=== PATIENT | male | born 1960 | race Caucasian/White ===

== ENCOUNTER 2019-10-12 21:41 | Emergency (ER) | payer OTHER ==
--- NOTE | 2019-10-12 21:53 | ERPHSYRPT ---
- History of Present Illness Time Seen by Provider: 10/12/19 21:52 Historian: patient Exam Limitations: no limitations Physician History: This is a 59-year-old white male who states he began having some left-sided chest pain without radiation and with associated palpitations. His chest pain and palpitation resolved prior to arrival. Patient describes the pain as sharp and nonradiating. Patient states that he has not been working much until the last couple of days. 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 Patient thinks he overexerted himself. Patient has no prior history of any cardiac abnormalities. He does have a history of hypertension. Denies shortness of breath, he denies abdominal pain, he denies nausea vomiting diarrhea. Timing/Duration: today Quality: sharpness, stabbing Location: other (Left side anterior ribs) Chest Pain Radiation: no radiation Severity of Pain-Max: moderate Severity of Pain-Current: none Modifying Factors: Improves With: movement Associated Symptoms: denies symptoms Prior Chest Pain/Cardiac Workup: no prior chest pain Nitro Today/Relief: no nitro taken today Aspirin Treatment Today: no aspirin today Allergies/Adverse Reactions: codeine Allergy (Unknown, Verified 10/12/19 22:04) Home Medications: Celecoxib [Celebrex] 200 mg PO DAILY 10/12/19 [History] Ergocalciferol (Vitamin D2) [Vitamin D2] 50,000 unit PO WEEKLY 10/12/19 [History ] Lidocaine 1 patch .ROUTE DAILY 10/12/19 [History] Methocarbamol 500 mg PO TID 10/12/19 [History] Nabumetone 750 mg PO BID 10/12/19 [History] Omeprazole 20 mg PO DAILY 10/12/19 [History] Travel Risk - International Travel Have you traveled outside of the country in past 3 weeks: No Have you or anyone close to you been diagnosed with or: No Do your reside in a community with a known COVID-19 case?: Yes If Yes where:: [facility] - Coronavirus Screening Has patient experienced Coronavirus symptoms: No - Review of Systems Constitutional: No Symptoms Eyes: No Symptoms Ears, Nose, & Throat: No Symptoms Respiratory: No Symptoms Cardiac: Chest Pain, Palpitations Abdominal/Gastrointestinal: No Symptoms Genitourinary Symptoms: No Symptoms Musculoskeletal: No Symptoms Skin: No Symptoms Neurological: No Symptoms Psychological: No Symptoms Endocrine: No Symptoms Hematologic/Lymphatic: No Symptoms Immunological/Allergic: No Symptoms All Other Systems: Reviewed and Negative - Past Medical History Pertinent Past Medical History: Yes Neurological History: Seizures ENT History: No Pertinent History Cardiac History: Hypertension Respiratory History: COPD, Emphysema Endocrine Medical History: Other Musculoskeletal History: Osteoarthritis GI Medical History: No Pertinent History History: No Pertinent History Psycho-Social History: No Pertinent History Male Reproductive Disorders: No Pertinent History Other Medical History: PATIENT STATES [facility] TOLD HIM HE HAS ARTHRITIS IN HIS JOINTS, GERD, ALSO HAD 'SPLOTCHES' ON HIS KIDNEYS WHICH WAS MONITORED FOR 2 YEARS BUT NOT BEING MONITORED NOW. - Past Surgical History Neuro Surgical History: No Pertinent History Cardiac: No Pertinent History Respiratory: No Pertinent History Gastrointestinal: No Pertinent History Genitourinary: No Pertinent History Musculoskeletal: No Pertinent History Male Surgical History: No Pertinent History - Social History Smoking Status: Former smoker - Nursing Vital Signs Nursing Vital Signs: Initial Vital Signs Temperature 97.8 F 10/12/19 21:46 Pulse Rate 82 10/12/19 21:46 Respiratory Rate 15 10/12/19 21:46 Blood Pressure 137/100 10/12/19 21:46 O2 Sat by Pulse Oximetry 97 10/12/19 21:46 Pain Scale Pain Intensity 0 - Physical Exam General Appearance: no apparent distress, alert, anxiety Eye Exam: PERRL/EOMI, eyes nml inspection Ears, Nose, Throat Exam: normal ENT inspection, moist mucous membranes Neck Exam: normal inspection, non-tender, supple, full range of motion Respiratory Exam: normal breath sounds, lungs clear, airway intact, No chest tenderness, No respiratory distress Cardiovascular Exam: regular rate/rhythm, normal heart sounds, normal peripheral pulses Gastrointestinal/Abdomen Exam: soft, normal bowel sounds, No tenderness Rectal Exam: not done Back Exam: normal inspection, normal range of motion, No CVA tenderness, No vertebral tenderness Extremity Exam: normal inspection, normal range of motion, pelvis stable Neurologic Exam: alert, oriented x 3, cooperative, acid operator II-XII nml as tested Skin Exam: normal color, warm, dry Lymphatic Exam: No adenopathy SpO2 Interpretation: normal O2 Delivery: Room Air - Course Nursing assessment & vital signs reviewed: Yes EKG Interpreted by Me: RATE (81), Sinus Rhythm, NORMAL AXIS, NORMAL INTERVALS, NORMAL QRS, Other (comparison ekg dated 02/23/19. no acute ischemic changes) Ordered Tests: Active Orders 24 hr Category Date Time Status Crotch Piece Baster STAT Care 10/12/19 21:55 Active Clean Catch Urine Specimen STAT Care 10/12/19 21:57 Active EKG-ER Only STAT Care 10/12/19 21:55 Active IV Insertion STAT Care 10/12/19 21:55 Active Isolation, Initiate & Maintain Q4H Care 10/12/19 22:03 Active Pulse Oximetry (ED) STAT Care 10/12/19 21:55 Active CHEST 1 VIEW (PORTABLE) Stat Exams 10/12/19 21:58 Taken CBC W DIFF Stat Lab 10/12/19 22:04 Completed CMP Stat Lab 10/12/19 22:04 Completed NT PRO BNP Stat Lab 10/12/19 22:04 Completed PROTIME WITH INR Stat Lab 10/12/19 22:04 Completed TROPONIN Q3H Lab 10/12/19 22:04 Completed TROPONIN Q3H Lab 10/13/19 01:00 Ordered TROPONIN Q3H Lab 10/13/19 04:00 Ordered TROPONIN Q3H Lab 10/13/19 07:00 Ordered TROPONIN Q3H Lab 10/13/19 10:00 Ordered Urine Triage Profile Stat Lab 10/12/19 21:58 Uncollected Medication Summary Discontinued Medications Generic Name Dose Route Start Last Admin Trade Name Freq PRN Reason Stop Dose Admin Aspirin 324 mg 10/12/19 21:57 10/12/19 22:01 Baby Aspirin 81 Mg Chew PO 10/12/19 21:58 324 mg STAT ONE Administration Aspirin Confirm 10/12/19 22:00 Baby Aspirin 81 Mg Chew Administered 10/12/19 22:01 Dose 324 mg .ROUTE .STK-MED ONE Lab/Rad Data: Laboratory Result Diagrams 10/12/19 22:04 10/12/19 22:04 Laboratory Results 10/12/19 10/12/19 10/12/19 Range/Units 22:04 22:04 22:04 WBC (4.0-10.5) K/mm3 RBC (4.1-5.6) M/mm3 Hgb (12.5-18.0) gm/dl Hct (42-50) % MCV (78-100) fl MCH (26-32) pg MCHC (32-36) g/dl RDW (11.5-14.0) % Plt Count (150-450) K/mm3 MPV (7.5-11.0) fl Gran % (36.0-66.0) % Eos # (Auto) (0-0.5) Absolute Lymphs (auto) (1.0-4.6) Absolute Monos (auto) (0.0-1.3) Lymphocytes % (24.0-44.0) % Monocytes % (0.0-12.0) % Eosinophils % (0.00-5.0) % Basophils % (0.0-0.4) % Absolute Granulocytes (1.4-6.9) Basophils # (0-0.4) PT 12.1 (8.83-12.87) SECONDS INR 1.07 (0.8-3.0) Sodium 139 (137-145) mmol/L Potassium 3.5 (3.5-5.1) mmol/L Chloride 107 (98-107) mmol/L Carbon Dioxide 24 (22-30) mmol/L Anion Gap 11.8 (5-15) MEQ/L BUN 18 (9-20) mg/dL Creatinine 0.96 (0.66-1.25) mg/dL Estimated GFR > 60.0 ML/MIN Glucose 125 H (74-106) mg/dL Calcium 9.5 (8.4-10.2) mg/dL Total Bilirubin 0.80 (0.2-1.3) mg/dL AST 28 (17-59) U/L ALT 26 (0-50) U/L Alkaline Phosphatase 106 (38-126) U/L Troponin I < 0.012 (0.000-0.034) ng/mL NT-Pro-B Natriuret Pep 28.9 (0-900) pg/mL Serum Total Protein 7.2 (6.3-8.2) g/dL Albumin 4.0 (3.5-5.0) g/dL 10/12/19 Range/Units 22:04 WBC 8.6 (4.0-10.5) K/mm3 RBC 4.73 (4.1-5.6) M/mm3 Hgb 14.3 (12.5-18.0) gm/dl Hct 41.8 L (42-50) % MCV 88.4 (78-100) fl MCH 30.2 (26-32) pg MCHC 34.2 (32-36) g/dl RDW 12.5 (11.5-14.0) % Plt Count 281 (150-450) K/mm3 MPV 9.3 (7.5-11.0) fl Gran % 42.9 (36.0-66.0) % Eos # (Auto) 0.32 (0-0.5) Absolute Lymphs (auto) 3.56 (1.0-4.6) Absolute Monos (auto) 1.02 (0.0-1.3) Lymphocytes % 41.3 (24.0-44.0) % Monocytes % 11.8 (0.0-12.0) % Eosinophils % 3.7 (0.00-5.0) % Basophils % 0.3 (0.0-0.4) % Absolute Granulocytes 3.70 (1.4-6.9) Basophils # 0.03 (0-0.4) PT (8.83-12.87) SECONDS INR (0.8-3.0) Sodium (137-145) mmol/L Potassium (3.5-5.1) mmol/L Chloride (98-107) mmol/L Carbon Dioxide (22-30) mmol/L Anion Gap (5-15) MEQ/L BUN (9-20) mg/dL Creatinine (0.66-1.25) mg/dL Estimated GFR ML/MIN Glucose (74-106) mg/dL Calcium (8.4-10.2) mg/dL Total Bilirubin (0.2-1.3) mg/dL AST (17-59) U/L ALT (0-50) U/L Alkaline Phosphatase (38-126) U/L Troponin I (0.000-0.034) ng/mL NT-Pro-B Natriuret Pep (0-900) pg/mL Serum Total Protein (6.3-8.2) g/dL Albumin (3.5-5.0) g/dL - Progress Progress: unchanged Air Movement: good Progress Note: 10/12/19 22:46 Chest x-ray reveals no evidence of any acute process Blood Culture(s) Obtained: No Antibiotics given: No Counseled pt/family regarding: lab results, diagnosis, need for follow-up, rad results - Departure Departure Disposition: Home Clinical Impression: Chest pain, non-cardiac Condition: Stable Critical Care Time: No Referrals: JASON FLORES DO [Primary Care Provider] - Additional Instructions: Follow-up with your primary care physician for further management of your symptoms. Return to the emergency room if your symptoms worsen.
[2019-10-12] MEDS ORDERED: BABY ASPIRIN 81 MG CHEW PO ONE (21:57)
[2019-10-12] MEDS ORDERED: BABY ASPIRIN 81 MG CHEW ONE (22:00)
[2019-10-12 22:07] LABS: BASOPHIL % 0.3 % (0.0-0.4); Basophil (Absolute #) 0.03 (0-0.4); Eosinophil % 3.7 % (0.00-5.0); Eosinophil (Absolute #) 0.32 (0-0.5); Hematocrit 41.8 % (42-50); Hemoglobin 14.3 gm/dl (12.5-18.0); Lymphocyte (Absolute #) 3.56 (1.0-4.6); Lymphocytes % 41.3 % (24.0-44.0); Mean Cell Volume 88.4 fl (78-100); Mean Corpuscular Hemoglobin 30.2 pg (26-32); Mean Corpuscular Hgb Concent. 34.2 g/dl (32-36); Mean Platelet Volume 9.3 fl (7.5-11.0); Monocyte (Absolute #) 1.02 (0.0-1.3); Monocytes % 11.8 % (0.0-12.0); Neutrophil % 42.9 % (36.0-66.0); Platelet Count 281 K/mm3 (150-450); Red Blood Count 4.73 M/mm3 (4.1-5.6); Red Cell Distribution Width 12.5 % (11.5-14.0); White Blood Count 8.6 K/mm3 (4.0-10.5)
[2019-10-12 22:14] LABS: INR 1.07 (0.8-3.0); PROTIME 12.1 SECONDS (8.83-12.87)
[2019-10-12 22:28] LABS: ALKALINE PHOSPHATASE 106 U/L (38-126); ANION GAP 11.8 MEQ/L (5-15); BLOOD UREA NITROGEN 18 mg/dL (9-20); CHLORIDE 107 mmol/L (98-107); Calcium 9.5 mg/dL (8.4-10.2); Carbon Dioxide 24 mmol/L (22-30); Creatinine 1 0.96 mg/dL (0.66-1.25); Glucose 125 mg/dL (74-106); NT PRO BNP 28.9 pg/mL (0-900); Potassium 3.5 mmol/L (3.5-5.1); SGOT/AST 28 U/L (17-59); SGPT/ALT 26 U/L (0-50); SODIUM 139 mmol/L (137-145); Total Protein 7.2 g/dL (6.3-8.2)
[2019-10-12 22:41] VITALS: PULSE 76
[2019-10-12 22:53] VITALS: BP 140/108; O2SAT 95
--- NOTE | 2019-10-13 08:19 | XRAY ---
Indication: Chest pain. Comparison: August 17, 2018. Portable chest remains clear. Heart is not enlarged. Descending aorta remains tortuous. Bony thorax intact again with old left rib fractures. Impression: Continued nonacute chest with chronic features.
== END 2019-10-12 22:58 | disposition home or self-care (01) ==
LOC: ED 21:41
DX: R07.89 Other chest pain (principal); I10 Essential (primary) hypertension; Z79.899 Other long term (current) drug therapy; G40.909 Epilepsy, unspecified, not intractable, without status epilepticus; J44.9 Chronic obstructive pulmonary disease, unspecified; M19.90 Unspecified osteoarthritis, unspecified site
CPT/HCPCS: 36000; 36415; 71045; 80053; 83880; 84484; 85025; 85610; 93005; 93041; 94760; 99284; A9270-GY

== ENCOUNTER 2020-02-03 21:54 | Emergency (ER) | payer MEDICARE, OTHER ==
--- NOTE | 2020-02-03 22:35 | ERPHSYRPT ---
- History of Present Illness Time Seen by Provider: 02/03/20 22:10 Source: patient Exam Limitations: no limitations Patient Subjective Stated Complaint: pt states that he was trying to get a watermelon out of a trailer, pt states that it was a little out of his reach, pt states that he heard it pop Triage Nursing Assessment: pt ambulated into the er, pt is axo x3, c/o rt rib pain, states 10/10 pain, tenderness with palpation to rt lower ribs, no bursing, no swelling present, clear lung sounds in all lobes, vitals wnl Physician History: Patient is a 59-year-old male presents to our ED with complaints of right sided rib pain. Patient states he was lifting a watermelon out of the back of a trailer. Patient was leaning on his right rib when he felt a pop. The pain is at the lateral aspect of his ribs at approximately the seventh eighth and ninth rib. Injury occurred just prior to arrival. No other injuries reported. Pain described as an ache that is well localized. Pain reproduced with movement palpation. Pain improved with rest. No other injuries reported. No nausea vomiting or diaphoresis. No chest pain. No abdominal pain. Patient rates his pain 10 out of 10 but declined pain medication. Patient is laying in bed comfortably. Patient laughing conversant and in no acute distress. Timing/Duration: today Severity: moderate Modifying Factors: Improves With: movement Associated Symptoms: No nausea, No vomiting, No abdominal pain, No shortness of breath, No diaphoresis, No cough, No chills, No chest pain, No fever, No headaches, No malaise, No syncope Allergies/Adverse Reactions: codeine Allergy (Unknown, Verified 02/03/20 22:08) Home Medications: Ergocalciferol (Vitamin D2) [Vitamin D2] 50,000 unit PO WEEKLY 10/12/19 [History] Lidocaine 1 patch .ROUTE DAILY 10/12/19 [History] Methocarbamol 500 mg PO TID 10/12/19 [History] Nabumetone 750 mg PO BID 10/12/19 [History] Omeprazole 20 mg PO DAILY 10/12/19 [History] lisinopriL [Lisinopril] 20 mg PO DAILY 02/03/20 [History] Hx Tetanus, Diphtheria Vaccination/Date Given: No (unknown) Hx Influenza Vaccination/Date Given: Yes (2019) Hx Pneumococcal Vaccination/Date Given: Yes (2018) Travel Risk - International Travel Have you traveled outside of the country in past 3 weeks: No - Coronavirus Screening Are you exhibiting any of the following symptoms?: No Close contact with a COVID-19 positive Pt in past 14-21 Days: No - Review of Systems Constitutional: No Symptoms, No Fever, No Chills Eyes: No Symptoms Ears, Nose, & Throat: No Symptoms Respiratory: No Symptoms, No Cough, No Dyspnea Cardiac: No Symptoms, No Chest Pain, No Edema, No Syncope Abdominal/Gastrointestinal: No Symptoms, No Abdominal Pain, No Nausea, No Vomiting, No Diarrhea Genitourinary Symptoms: No Symptoms, No Dysuria Musculoskeletal: No Symptoms, No Back Pain, No Neck Pain Skin: No Symptoms, No Rash Neurological: No Symptoms, No Dizziness, No Focal Weakness, No Sensory Changes Psychological: No Symptoms Endocrine: No Symptoms Hematologic/Lymphatic: No Symptoms Immunological/Allergic: No Symptoms All Other Systems: Reviewed and Negative - Past Medical History Pertinent Past Medical History: Yes Neurological History: Seizures ENT History: No Pertinent History Cardiac History: Hypertension Respiratory History: COPD, Emphysema Endocrine Medical History: Other Musculoskeletal History: Osteoarthritis GI Medical History: GERD History: No Pertinent History Psycho-Social History: No Pertinent History Male Reproductive Disorders: No Pertinent History Other Medical History: PATIENT [facility] TOLD HIM HE HAS ARTHRITIS IN HIS JOINTS, GERD, ALSO HAD 'SPLOTCHES' ON HIS KIDNEYS WHICH WAS MONITORED FOR 2 YEARS BUT NOT BEING MONITORED NOW. - Past Surgical History Past Surgical History: Yes Neuro Surgical History: No Pertinent History Cardiac: No Pertinent History Respiratory: No Pertinent History Gastrointestinal: No Pertinent History Genitourinary: No Pertinent History Musculoskeletal: Orthopedic Surgery Male Surgical History: No Pertinent History Other Surgical History: rt hand surgery - Social History Smoking Status: Former smoker Exposure to second hand smoke: Yes Drug Use: none Patient Lives Alone: Yes - Nursing Vital Signs Nursing Vital Signs: Initial Vital Signs Pulse Rate 79 02/03/20 22:08 Respiratory Rate 18 02/03/20 22:08 Blood Pressure 126/82 02/03/20 22:08 O2 Sat by Pulse Oximetry 99 02/03/20 22:08 Pain Scale Pain Intensity 10 - Physical Exam General Appearance: no apparent distress, alert Eye Exam: PERRL/EOMI, eyes nml inspection Ears, Nose, Throat Exam: normal ENT inspection, TMs normal, pharynx normal, moist mucous membranes Neck Exam: normal inspection, non-tender, supple, full range of motion Respiratory Exam: normal breath sounds, lungs clear, other (Tenderness to palpation at lateral ribs 7,8,9. Overlying soft tissue intact. No signs of trauma.), No respiratory distress Cardiovascular Exam: regular rate/rhythm, normal heart sounds, normal peripheral pulses Gastrointestinal/Abdomen Exam: soft, normal bowel sounds, No tenderness, No mass Back Exam: normal inspection, normal range of motion, No CVA tenderness, No vertebral tenderness Extremity Exam: normal inspection, normal range of motion, pelvis stable Neurologic Exam: alert, oriented x 3, cooperative, normal mood/affect, nml cerebellar function, nml station & gait, sensation nml, No motor deficits Skin Exam: normal color, warm, dry, No rash Lymphatic Exam: No adenopathy SpO2 Interpretation: normal SpO2: 99 O2 Delivery: Room Air - Course Nursing assessment & vital signs reviewed: Yes - Radiology Exams Ribs X-ray Interpretation: Interpreted by me (No rib fractures observed. Osteopenia. No pneumothorax.) Ordered Tests: Active Orders 24 hr Category Date Time Status RIBS BILATERAL INCLUDE PA CXR Stat Exams 02/03/20 23:10 Taken - Progress Progress: improved Progress Note: 02/03/20 23:15 Patient reassessed. He is comfortable. X-ray reviewed. No obvious rib fractures. There is a preliminary read. Final read will be by radiologist in the morning. Patient states he is ready for discharge. He has no other complaints at this time. Counseled pt/family regarding: diagnosis, rad results - Departure Departure Disposition: Home Clinical Impression: Rib contusion Condition: Stable Critical Care Time: No Referrals: JASON FLORES DO [Primary Care Provider] - Additional Instructions: Discharge/Care Plan HERNANDEZABAD JACKSON was seen on 02/03/20 in the Emergency Room. The patient was counseled regarding Diagnosis,Lab results, Imaging studies, need for follow up and when to return to the Emergency Room. Prescriptions given: Discharge Note I have spoken with the patient and/or caregivers. I have explained the patient's condition, diagnosis and treatment plan based on the information available to me at this time. I have answered the patient's and/or caregiver's questions and addressed any concerns. The patient and/or caregivers have as good understanding of the patient's diagnosis, condition and treatment plan as can be expected at this point. The vital signs have been stable. The patient's condition is stable and appropriate for discharge from the emergency department. The patient will pursue further outpatient evaluation with the primary care physician or other designated or consulting physician as outlined in the discharge instructions. The patient and/or caregivers are agreeable to this plan of care and follow-up instructions have been explained in detail. The patient and/or caregivers have received these instruction. The patient/and or caregivers are aware that any significant change in condition or worsening of symptoms should prompt an immediate return to this or the closest emergency department or call 911.
[2020-02-03 23:23] VITALS: BP 121/91; PULSE 72; O2SAT 98
--- NOTE | 2020-02-04 09:04 | XRAY ---
Indication: Right lower rib pain following injury. Comparison: None PA chest and 2 view left and right ribs demonstrates mild lumbar degenerative spondylosis. No other bony or articular abnormalities. Lungs inflated and clear. Borderline cardiomegaly with tortuous descending aorta.
== END 2020-02-03 23:36 | disposition home or self-care (01) ==
LOC: ED 21:54
DX: S20.219A Contusion of unspecified front wall of thorax, initial encounter (principal); X50.9XXA Other and unspecified overexertion or strenuous movements or postures, initial encounter
CPT/HCPCS: 71111; 99283

== ENCOUNTER 2020-05-29 15:11 | Emergency (ER) | payer OTHER ==
[2020-05-29 15:27] VITALS: BP 128/92; PULSE 88; O2SAT 98
[2020-05-29] MEDS ORDERED: DELTASONE 20 MG PO ONE (15:37)
--- NOTE | 2020-05-29 15:43 | ERPHSYRPT ---
- History of Present Illness Time Seen by Provider: 05/29/20 15:30 Source: patient Exam Limitations: no limitations Patient Subjective Stated Complaint: pt here for insect bites to upper ext and chest, for a few days now after cleaning out a barn Triage Nursing Assessment: pt alert, resp easy, skin w/d/p. has red pumps to arms and chest, face mask in place Physician History: Patient is a 60-year-old male presents to our ED for evaluation of a pruritic rash. Patient has been cleaning his barn for the past few days. Since then patient developed this pruritic rash that patient thinks may be insect bites. The pruritic rash is observed on his arms lower face upper chest and back. No difficulty breathing. No intraoral lesions. No abdominal cramping. No history of the same. Symptoms are mild to moderate in intensity. No specific worsening or improving factors. Patient voices no other complaints concerns at this time. Timing/Duration: day(s) Quality: itchy Severity: moderate Location: other (See HPI note) Possible Causes: exposure to allergen, insect bite Modifying Factors: Improves With: other (Patient has not tried any remedies for his symptoms.) Associated Symptoms: No blisters, No change in skin texture, No difficulty br eathing, No fever, No headache, No jaundice, No malaise, No nasal congestion, No pallor, No paresthesia, No petechiae, No sore throat Allergies/Adverse Reactions: codeine Allergy (Unknown, Verified 05/29/20 15:27) Home Medications: Lidocaine 1 patch .ROUTE DAILY 10/12/19 [History] Methocarbamol 500 mg PO TID 10/12/19 [History] Nabumetone 750 mg PO BID 10/12/19 [History] Omeprazole 20 mg PO DAILY 10/12/19 [History] lisinopriL [Lisinopril] 20 mg PO DAILY 02/03/20 [History] Gabapentin 1 ea DAILY 05/29/20 [History] Hx Tetanus, Diphtheria Vaccination/Date Given: No (unknown) Hx Influenza Vaccination/Date Given: Yes Hx Pneumococcal Vaccination/Date Given: Yes Immunizations Up to Date: Yes Travel Risk - International Travel Have you traveled outside of the country in past 3 weeks: No - Coronavirus Screening Are you exhibiting any of the following symptoms?: No Close contact with a COVID-19 positive Pt in past 14-21 Days: No - Review of Systems Constitutional: No Symptoms, No Fever, No Chills Eyes: No Symptoms Ears, Nose, & Throat: No Symptoms Respiratory: No Symptoms, No Cough, No Dyspnea Cardiac: No Symptoms, No Chest Pain, No Edema, No Syncope Abdominal/Gastrointestinal: No Symptoms, No Abdominal Pain, No Nausea, No Vomiting, No Diarrhea Genitourinary Symptoms: No Symptoms, No Dysuria Musculoskeletal: No Symptoms, No Back Pain, No Neck Pain Skin: No Symptoms, No Rash Neurological: No Symptoms, No Dizziness, No Focal Weakness, No Sensory Changes Psychological: No Symptoms Endocrine: No Symptoms Hematologic/Lymphatic: No Symptoms Immunological/Allergic: No Symptoms All Other Systems: Reviewed and Negative - Past Medical History Pertinent Past Medical History: Yes Neurological History: Seizures ENT History: No Pertinent History Cardiac History: Hypertension Respiratory History: COPD, Emphysema Endocrine Medical History: Other Musculoskeletal History: Osteoarthritis GI Medical History: GERD History: No Pertinent History Psycho-Social History: No Pertinent History Male Reproductive Disorders: No Pertinent History Other Medical History: PATIENT [facility] TOLD HIM HE HAS ARTHRITIS IN HIS JOINTS, GERD, ALSO HAD 'SPLOTCHES' ON HIS KIDNEYS WHICH WAS MONITORED FOR 2 YEARS BUT NOT BEING MONITORED NOW. - Past Surgical History Past Surgical History: Yes Neuro Surgical History: No Pertinent History Cardiac: No Pertinent History Respiratory: No Pertinent History Gastrointestinal: No Pertinent History Genitourinary: No Pertinent History Musculoskeletal: Orthopedic Surgery Male Surgical History: No Pertinent History Other Surgical History: rt hand surgery - Social History Smoking Status: Former smoker Exposure to second hand smoke: No Drug Use: none Patient Lives Alone: Yes - Nursing Vital Signs Nursing Vital Signs: Initial Vital Signs Temperature 97.2 F 05/29/20 15:21 Pulse Rate 88 05/29/20 15:21 Respiratory Rate 18 05/29/20 15:21 Blood Pressure 128/92 05/29/20 15:21 O2 Sat by Pulse Oximetry 98 05/29/20 15:21 Pain Scale Pain Intensity 10 - Physical Exam General Appearance: no apparent distress, alert Eye Exam: PERRL/EOMI, eyes nml inspection Ears, Nose, Throat Exam: normal ENT inspection, pharynx normal, moist mucous membranes Neck Exam: normal inspection, non-tender, supple, full range of motion Respiratory Exam: normal breath sounds, lungs clear, No chest tenderness, No respiratory distress Cardiovascular Exam: regular rate/rhythm, normal heart sounds Gastrointestinal/Abdomen Exam: soft, mass, No tenderness Back Exam: normal inspection, normal range of motion, No CVA tenderness, No vertebral tenderness Extremity Exam: normal inspection, normal range of motion Neurologic Exam: alert, oriented x 3, cooperative, normal mood/affect, sensation nml, No motor deficits Skin Exam: normal color, warm, dry, other (Nonspecific red papules observed on upper chest arms upper back and lower face.) SpO2 Interpretation: normal SpO2: 98 O2 Delivery: Room Air - Course Nursing assessment & vital signs reviewed: Yes Ordered Tests: Medication Summary Generic Name Dose Route Start Last Admin Trade Name Rakeshq PRN Reason Stop Dose Admin Prednisone 60 mg 05/29/20 15:37 Deltasone 20 Mg PO 05/29/20 15:38 STAT ONE - Progress Progress: improved Progress Note: 05/29/20 15:45 Occasion for imaging studies. Patient received prednisone in our ED. He prescription for the same was provided. Patient's rash is nonspecific. We will treat symptoms with a short course of systemic steroids. Patient agrees to follow-up with his primary care doctor within 48 hours for reevaluation. Counseled pt/family regarding: diagnosis, need for follow-up - Departure Departure Disposition: Home Clinical Impression: Skin rash, Pruritic rash Condition: Stable Critical Care Time: No Referrals: JASON FLORES DO [Primary Care Provider] - Additional Instructions: Discharge/Care Plan ABAD HERNANDEZ was seen on 05/29/20 in the Emergency Room. The patient was counseled regarding Diagnosis,Lab results, Imaging studies, need for follow up and when to return to the Emergency Room. Prescriptions given: Discharge Note I have spoken with the patient and/or caregivers. I have explained the patient's condition, diagnosis and treatment plan based on the information available to me at this time. I have answered the patient's and/or caregiver's questions and addressed any concerns. The patient and/or caregivers have as good understanding of the patient's diagnosis, condition and treatment plan as can be expected at this point. The vital signs have been stable. The patient's condition is stable and appropriate for discharge from the emergency department. The patient will pursue further outpatient evaluation with the primary care physician or other designated or consulting physician as outlined in the discharge instructions. The patient and/or caregivers are agreeable to this plan of care and follow-up instructions have been explained in detail. The patient and/or caregivers have received these instruction. The patient/and or caregivers are aware that any significant change in condition or worsening of symptoms should prompt an immediate return to this or the closest emergency department or call 911. Prescriptions: Prednisone 10 mg [Deltasone 10 mg] 40 mg PO DAILY 3 Days #12 tablet
[2020-05-29] MEDS ORDERED: DELTASONE 20 MG ONE (16:35)
== END 2020-05-29 16:46 | disposition home or self-care (01) ==
LOC: ED 15:11
DX: R21 Rash and other nonspecific skin eruption (principal); W57.XXXA Bitten or stung by nonvenomous insect and other nonvenomous arthropods, initial encounter
CPT/HCPCS: 99283; A9270-GY

== ENCOUNTER 2022-06-09 07:42 | Emergency (ER) | payer OTHER ==
[2022-06-09] MEDS ORDERED: Adacel Vial IM ONE ×2 (08:18→08:41)
--- NOTE | 2022-06-09 08:24 | ERPHSYRPT ---
- History of Present Illness Source: patient Exam Limitations: no limitations Patient Subjective Stated Complaint: smashed hand with large piece of iron around 2300 last night Triage Nursing Assessment: Presents to ED A &OX3, ambulates to bed 8. Vitals obtained. C/o R hand injury that occured at 2300 last night. Was carrying alarge piece of iron when it fell off his shoulder. Attempted to catch it with R hand and hand got smashed by the iron. Pt does have deformity to R hand, but states this is from an old injury/surgery. Pt states hand structure looks like his normal. Radial pulse 2+. Very small 0.5cm abrasion vs laceration noted over knuckle to 4th digit. No active bleeding. Pt reports numbness to 4th and 5th digits. Able to move all fingers. Sensation intact. Reports tetanus shot within last 5 years. Physician History: 62 yo wm w R hand pain after dropping a piece of iron on it yesterday at home. Pain is moderated and worse w movement. He has a small superficial laceration wo need for repair on his R dorsal 4th digit. Tetanus is about 5 yrs old, so will give him a Tdap. Pt is R handed and denies other injuries. Occurred: yesterday Method of Injury: direct blow Quality: constant Severity of Pain-Max: moderate Severity of Pain-Current: moderate Extremities Pain Location: hand: right Modifying Factors: Improves With: movement Associated Symptoms: none Allergies/Adverse Reactions: codeine Allergy (Unknown, Verified 05/29/20 15:27) Home Medications: Lidocaine 1 patch .ROUTE DAILY 10/12/19 [History] Nabumetone 750 mg PO BID 10/12/19 [History] Omeprazole 20 mg PO DAILY 10/12/19 [History] methocarbamoL [Methocarbamol] 500 mg PO TID 10/12/19 [History] lisinopriL [Lisinopril] 20 mg PO DAILY 02/03/20 [History] Gabapentin 1 ea DAILY 05/29/20 [History] Hx Tetanus, Diphtheria Vaccination/Date Given: Yes Hx Influenza Vaccination/Date Given: Yes Hx Pneumococcal Vaccination/Date Given: Yes Travel Risk - International Travel Have you traveled outside of the country in past 3 weeks: No - Coronavirus Screening Are you exhibiting any of the following symptoms?: No - Vaccine Status Have you recieved a Covid-19 vaccination: Yes Graduate Rn: [employer] - Vaccination Dates Date of 2cond Vaccination (if applicable): unknown - Review of Systems Constitutional: No Symptoms Eyes: No Symptoms Ears, Nose, & Throat: No Symptoms Respiratory: No Symptoms Cardiac: No Symptoms Abdominal/Gastrointestinal: No Symptoms Genitourinary Symptoms: No Symptoms Skin: No Symptoms Neurological: No Symptoms Psychological: No Symptoms Endocrine: No Symptoms Hematologic/Lymphatic: No Symptoms Immunological/Allergic: No Symptoms - Past Medical History Pertinent Past Medical History: Yes Neurological History: Seizures ENT History: No Pertinent History Cardiac History: Hypertension Respiratory History: COPD, Emphysema Endocrine Medical History: Other Musculoskeletal History: Osteoarthritis GI Medical History: GERD History: No Pertinent History Psycho-Social History: No Pertinent History Male Reproductive Disorders: No Pertinent History Other Medical History: PATIENT [facility] TOLD HIM HE HAS ARTHRITIS IN HIS JOINTS, GERD, ALSO HAD 'SPLOTCHES' ON HIS KIDNEYS WHICH WAS MONITORED FOR 2 YEARS BUT NOT BEING MONITORED NOW. - Past Surgical History Past Surgical History: Yes Neuro Surgical History: No Pertinent History Cardiac: No Pertinent History Respiratory: No Pertinent History Gastrointestinal: No Pertinent History Genitourinary: No Pertinent History Musculoskeletal: Orthopedic Surgery Male Surgical History: No Pertinent History Other Surgical History: rt hand surgery - Social History Smoking Status: Former smoker Exposure to second hand smoke: No Drug Use: none Patient Lives Alone: Yes - Nursing Vital Signs Nursing Vital Signs: Initial Vital Signs Temperature 97.7 F 06/09/22 07:53 Pulse Rate 81 06/09/22 07:53 Respiratory Rate 16 06/09/22 07:53 Blood Pressure 150/90 06/09/22 07:53 O2 Sat by Pulse Oximetry 98 06/09/22 07:53 Pain Scale Pain Intensity 8 Hypertensive - Physical Exam General Appearance: no apparent distress Eyes, Ears, Nose, Throat Exam: normal ENT inspection, TMs normal, pharynx normal, moist mucous membranes Neck Exam: normal inspection, non-tender, supple, full range of motion, No Brudzinski, No Kernig's, No meningismus, No carotid bruit Cardiovascular/Respiratory Exam: chest non-tender, normal breath sounds, regular rate/rhythm, heart sounds normal Abdominal Exam: non-tender, soft Back Exam: normal inspection, normal range of motion, No CVA tenderness, No vertebral tenderness Shoulder Exam: normal inspection, non-tender, no evidence of injury Elbow/Forearm Exam: normal inspection, non-tender, no evidence of injury Wrist Exam: normal inspection, non-tender, no evidence of injury Hand Exam: bone tenderness (R hand-TTP mildly over 3-5 metacarpals dorsally/Mild edema/Superficial lac dorsal 4th digit wo need for repair/Good radial pulse, distal sensation, and capillary return) DTR - Upper Extremity Exam: bicep (R): 2+, bicep (L): 2+ Neuro/Tendon Exam: normal sensation, normal motor functions, normal tendon functions, responds to pain, no evidence tendon injury, No motor deficit, No sensory deficit Mental Status Exam: alert, oriented x 3, cooperative Skin Exam: normal color, warm, dry SpO2 Interpretation: normal SpO2: 98 O2 Delivery: Room Air - Course Nursing assessment & vital signs reviewed: Yes - Radiology Exams Hand X-ray Interpretation: Interpreted by me (R hand/No fx or dislocation) Ordered Tests: Active Orders 24 hr Category Date Time Status Da Bandage Application -[facility] STAT Care 06/09/22 08:27 Completed HAND (MINIMUM 3 VIEWS) Stat Exams 06/09/22 08:26 Taken Medication Summary Discontinued Medications Generic Name Dose Route Start Last Admin Trade Name Freq PRN Reason Stop Dose Admin Diphtheria/Tetanus/Acell Pertussis 0.5 ml 06/09/22 08:18 06/09/22 08:44 Tdap --Diph,Pertuss(Acell),Tet Vac/Pf 0.5 Ml Vial IM 06/09/22 08:19 0.5 ml .ONCE ONE Administration Diphtheria/Tetanus/Acell Pertussis Confirm 06/09/22 08:41 Tdap --Diph,Pertuss(Acell),Tet Vac/Pf 0.5 Ml Vial Administered 06/09/22 08:42 Dose 0.5 ml IM .STK-MED ONE Ketorolac Tromethamine 15 mg 06/09/22 08:29 06/09/22 08:43 Ketorolac Tromethamine 30 Mg/Ml Inj IM 06/09/22 08:30 15 mg STAT ONE Administration Ketorolac Tromethamine Confirm 06/09/22 08:41 Ketorolac Tromethamine 30 Mg/Ml Inj Administered 06/09/22 08:42 Dose 30 mg .ROUTE .STK-MED ONE - Progress Progress: improved Progress Note: 12/18/22 08:29 15mg IM Toradol Da wrap R hand per nursing/NVI Tdap Counseled pt/family regarding: diagnosis, need for follow-up, rad results - Departure Departure Disposition: Home Clinical Impression: Hand contusion Condition: Stable Critical Care Time: No Referrals: JASON FLORES DO [Primary Care Provider] - Follow up/PCP as directed Instructions: Hand Pain (DC), Minor Contusion ED Additional Instructions: Da wrap for 2-3 days Follow up with your family MD for continued pain Wash open areas with soap/water 1-2 times a day Watch for signs of infection-increasing redness/increasing pain/any pus/Temperature greater than 100.5 Ice for 6-12 hours today, heat in AM
[2022-06-09] MEDS ORDERED: TORAdol 30 mg Injection IM ONE (08:29)
[2022-06-09] MEDS ORDERED: TORAdol 30 mg Injection ONE (08:41)
[2022-06-09 08:58] VITALS: BP 141/95; PULSE 70
[2022-06-09 15:38] VITALS: O2SAT 98
--- NOTE | 2022-06-09 17:39 | XRAY ---
Indication: Foreign body 4th/5th fingers. Comparison: None 3 view right hand demonstrates mild osteopenia and old 2nd-4th mid metacarpal fractures. No other bony, articular, or soft tissue abnormalities.
== END 2022-06-09 09:00 | disposition home or self-care (01) ==
LOC: ED 07:42
DX: S60.221A Contusion of right hand, initial encounter (principal); W20.8XXA Other cause of strike by thrown, projected or falling object, initial encounter; M79.641 Pain in right hand; I10 Essential (primary) hypertension; Z79.899 Other long term (current) drug therapy
CPT/HCPCS: 73130; 90471; 90715; 96372; 99283; J1885